=== PATIENT | male | born 1950 | race Caucasian/White ===

== ENCOUNTER → 2018-10-05 | Outpatient (CLI) | payer OTHER ==
--- NOTE | 2018-10-06 00:33 | CTL ---
EXAMINATION TYPE: CT Low Dose Lung DATE OF EXAM ORDERED: 10/05/2018 HISTORY: 68-year-old male presents with history of tobacco use/dependence. Lung cancer screening CT DLP: [address] CTDI: 3.3 mGy Automated exposure control for dose reduction was used. SCREENING VISIT: Baseline COMPARISON: None TECHNIQUE: Low dose computed tomography scan was performed through the chest at 1 mm thick sections a nd reconstructed images in the coronal and sagittal plane. Additional coronal MIP reconstructions wer e performed. CT DIAGNOSTIC QUALITY: Satisfactory FINDINGS: Heart normal size without pericardial effusion. Some scattered coronary vessel calcifications are pre sent. Aortic root is ectatic at 3.9 cm. Ascending aorta mildly aneurysmal at 4.1 cm. Conventional arch vessel branching anatomy. No thoracic lymphadenopathy by CT size criteria. Mild centrilobular emphysema. Biapical pleural parenchymal scarring. Mild diffuse bronchial wall thic kening. 5 mm anterior left upper lobe pulmonary nodule, axial image 96. Focal irregular patchy density peripheral left upper lobe, axial image 118 could represent an infecti ous/inflammatory focus and should be reassessed in 3 months. Unclear if there is vascular shadow versus a 1.7 cm right perihilar nodule, reference axial image 168 . Triangular 4 mm pulmonary nodule right mid lung along the major fissure suggesting a pulmonary lymph node. No consolidation or pleural effusion. Tiny hiatal hernia. Visualized upper abdomen shows mild stool burden. Bones: Mild degenerative disc disease lower thoracic spine. IMPRESSION: 1. LungRADS 3 - probably benign; vascular confluence versus 1.7 cm right perihilar nodule. Additional patchy groundglass left upper lobe may represent an infectious/inflammatory focus. 5 mm left upper l obe pulmonary nodule. 2. COPD with mild emphysema. 3. 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 RECOMMENDATION: 1. Three-month follow-up contrast enhanced CT chest to reassess. 2. Smoking cessation. FOLLOW-UP CT CHEST RECOMMENDATION: [address] LUNG RAD: 3, probably benign
== END | disposition home or self-care (01) ==
LOC: RADCTMAIN 15:28
DX: Z12.2 Encounter for screening for malignant neoplasm of respiratory organs (principal); J43.9 Emphysema, unspecified; I71.2 Thoracic aortic aneurysm, without rupture; Z87.891 Personal history of nicotine dependence

== ENCOUNTER → 2018-11-20 | Outpatient (CLI) | payer OTHER ==
--- NOTE | 2018-11-20 15:05 | CT ---
EXAMINATION TYPE: CT chest w con DATE OF EXAM: 11/20/2018 COMPARISON: 10/05/2018 HISTORY: 68-year-old male Solitary pulmonary nodule TECHNIQUE: Contiguous axial scanning of the chest after the administration of 100 mL of Isovue 300. Coronal/sagittal reconstructions performed. CT DLP: 443.7mGycm. Automatic exposure control utilized for a dose reduction. FINDINGS: Heart normal sinus with trace anterior pericardial fluid. LAD calcifications are present. The ascending aorta is measured ectatic at 3.8 cm rather than 4.1 cm on the recent prior. Mild athero sclerotic arch calcifications with conventional branching anatomy. The previously described possible right hilar nodule seems to correspond to a right-sided bronchial l ymph node versus pulmonary nodule measuring 2.0 x 1.7 cm, unchanged from 10/05/2018. There also seems to be a borderline sized 1.3 cm right infrahilar lymph node on axial image 32. Triangular fissural lymph node right mid lung axial image 31 is unchanged and benign. 3 mm left upper lobe pulmonary nodule axial image 25 is stable in retrospect. 5 mm anterior left uppe r lobe pulmonary nodule remains unchanged, axial image 22. 5 mm left lower lobe pulmonary nodule axial image 39 is unchanged in retrospect. Patchy ill-defined groundglass in the peripheral left upper lobe, axial image 26 and 27 is unchanged after one and a half months. Strandy atelectasis in the lower lungs. Biapical pleural-parenchymal scarring. No consolidation or pl eural effusion. Small hernia. Visualized upper abdomen shows no gross abnormality. Bones: Mild endplate spondylosis lower thoracic spine. IMPRESSION: 1. A 2.0 x 1.7 cm right bronchial lymph node versus perihilar pulmonary nodule is confirmed and remai ns unchanged for approximately 1.5 months. 2. Additional pulmonary nodules measuring up to 5 mm are also stable for 1.5 months. 3. Stable patch of groundglass left upper lobe, possible infectious/inflammatory focus. 4. Ongoing follow-up will be needed.
== END | disposition home or self-care (01) ==
LOC: RADCTMAIN 12:55
DX: R91.8 Other nonspecific abnormal finding of lung field (principal)
CPT/HCPCS: 82565; 84520; 71260; 36415; Q9967

== ENCOUNTER → 2020-10-23 | Outpatient (CLI) | payer OTHER ==
--- NOTE | 2020-10-25 21:37 | CT ---
EXAMINATION TYPE: CT chest w con DATE OF EXAM: 10/23/2020 COMPARISON: 11/20/2018 HISTORY: 70-year-old male R91.1, Solitary pulmonary nodule follow up. TECHNIQUE: Contiguous axial scanning of the chest after the administration of 100 mL of Isovue M300. Coronal/sagittal reconstructions performed. CT DLP: 357.6mGycm. Automatic exposure control utilized for a dose reduction. FINDINGS: Heart normal size without pericardial effusion. LAD coronary artery calcifications are present. Mild aneurysm ascending aorta 4.0 cm. Conventional arch vessel branching anatomy. Right hilar lymph node measuring 1.9 cm is unchanged. 1.3 cm left hilar lymph node is unchanged. Otherwise, no thoracic lymphadenopathy by CT size criteria. Biapical pleural parenchymal scarring, right greater than left. Mild to moderate centrilobular emphys santi. Mild dependent atelectasis. The couple previous 4 to 5 mm pulmonary nodules in the left upper lobe, axial images 17 and 19 are un changed. However, there is new cluster of 3 nodules in the periphery of the left midlung ranging in size from 7 mm to 10 mm, axial images 22 and 23. Short interval follow-up recommended. No consolidation or pleural effusion. Visualized upper abdomen shows no gross abnormality. Bones: Moderate degenerative disc disease L1-L2 with grade 1 retrolisthesis. IMPRESSION: 1. COPD with mild to moderate emphysema. 2. A couple 4 to 5 mm left upper lobe pulmonary nodules are unchanged and benign. However, there is a new cluster of 3 nodules in the periphery of the left mid lung measuring up to 1.0 cm. 3 month follo w-up CT to reassess. Early neoplasm not excluded at this time. 3. LAD coronary artery calcifications. Mild aneurysm ascending aorta 4.0 cm.
== END | disposition home or self-care (01) ==
LOC: RADCTMAIN 11:27
PROVIDERS: ATTEND Nurse Practitioner Acute Care
DX: I70.0 Atherosclerosis of aorta (principal); J43.9 Emphysema, unspecified
CPT/HCPCS: 82565; 84520; 71260; 36415; Q9967

== ENCOUNTER → 2020-11-24 | Outpatient (CLI) | payer MEDICARE ==
--- NOTE | 2020-11-24 08:12 | US ---
EXAMINATION TYPE: US prostate transrectal DATE OF EXAM: 11/24/2020 COMPARISON: NONE CLINICAL HISTORY: R97.20 Elevated PSA. Elevated PSA. Decreased urinary stream This examination was performed using the transrectal probe. EXAM MEASUREMENTS: Gland Size: 5.1 x 3.9 x 5.2cm Volume: 54.5ml Predicted PSA: 6.54 Actual PSA (if available): not available Heterogeneous gland. no distinct nodule within the peripheral zone IMPRESSION: Prostatic enlargement without suspicious nodule. Correlate with actual PSA and predicted PSA. Predicted PSA = volume x 0.12 ng/ml Calculated Volume = 0.5236 x L x W x H
== END | disposition home or self-care (01) ==
LOC: RADUSWWP 07:00
PROVIDERS: ATTEND Family Medicine
DX: R97.20 Elevated prostate specific antigen [PSA] (principal)
CPT/HCPCS: 76872

== ENCOUNTER → 2021-01-16 | Outpatient (CLI) | payer OTHER ==
--- NOTE | 2021-01-16 12:28 | CT ---
EXAMINATION TYPE: CT chest w con DATE OF EXAM: 01/16/2021 COMPARISON: Chest CT October 23, 2020 and older study November 20, 2018 HISTORY: prior abn CT CT DLP: 436.2 mGycm. Automated Exposure Control for Dose Reduction was Utilized. TECHNIQUE: CT scan of the thorax is performed following with IV Contrast, patient injected with 100 mL of Isovue 300. FINDINGS: LUNGS: Mild to moderate biapical pleural/parenchymal scarring extending posteriorly and inferiorly on the right is redemonstrated. Scattered small and micronodules are redemonstrated. Cluster of small n odules in the inferior lateral left upper lobe axial image 24 are slightly less prominent or smaller in size from most recent CT measuring up to 5 mm long axis current study. Dependent atelectatic topete e in both lower lobes. No new greater than 5 mm pulmonary nodules. No pleural effusion or pneumothora x seen MEDIASTINUM: There is stable slightly enlarged 1.6 x 1.3 cm right hilar lymph node axial image 33. No new greater than 1.0 cm thoracic lymph nodes. No cardiomegaly or pericardial effusion is seen. Cor onary artery calcification is present. Ascending aorta measures up to 4.0 cm in diameter at the aorti c root on coronal image 45 OTHER: Disc space narrowing with vacuum disc phenomenon in the upper lumbar spine is present. IMPRESSION: Diminished size to the cluster of small nodules in the left midlung periphery. No new or enlarging greater than 5 mm nodules identified on current study. Consider repeat CT in one year time to reassess.
== END | disposition home or self-care (01) ==
LOC: RADCTMAIN 10:50
DX: R91.8 Other nonspecific abnormal finding of lung field (principal)
CPT/HCPCS: 82565; 84520; 71260; 36415; Q9967

== ENCOUNTER → 2021-10-18 | Outpatient (CLI) | payer OTHER ==
--- NOTE | 2021-10-18 10:48 | CT ---
EXAMINATION TYPE: CT chest wo/w con CT DLP: 754.0 mGycm, Automated exposure control for dose reduction was used. DATE OF EXAM: 10/18/2021 10:30 AM COMPARISON: Multiple CT chest with most recent 01/16/2021. CLINICAL INDICATION:Male, 71 years old with history of R91.1 SOLITARY PULMONARY NODULE R91.8 ABNORMAL FIN; TECHNIQUE: Multiple axial images were obtained through the chest before and after the administration of 100 cc of Isovue 300. FINDINGS: LUNGS/ PLEURA: Mild to moderate biapical pleural/parenchymal scarring extending posteriorly and infer iorly on the right redemonstrated. Scattered small and micronodules are redemonstrated. No new or enl arging pulmonary nodules. Index nodules include left upper lobe 5 mm nodule (series 4, image 18) lef t upper lobe 4 mm pulmonary nodule (series 4, image 22), left lower lobe 7 mm pulmonary nodule (serie s 4, image 39), and right upper lobe 8 mm pulmonary nodule (series 4, image 30). Cluster of small nod ules in the inferior lateral left upper lobe are less prominent from prior examination. No pneumothor ax or pleural effusion. No focal consolidation. AIRWAY: Patent and unremarkable. HEART: Size within normal limits. No pericardial effusion. Coronary artery calcifications. MEDIASTINUM: Stable enlarged right hilar lymph node measuring up to 1.6 cm short axis (series 9, imag e 32). VASCULATURE: Stable ascending aorta measuring up to 4 cm in diameter. MUSCULOSKELETAL: No acute osseous abnormalities SOFT TISSUES/LYMPH NODES: No pathological adenopathy. Stable 9 mm subcutaneous right chest wall lesio n may be representing a sebaceous cyst. LOWER NECK: No significant findings. UPPER ABDOMEN: Small hiatal hernia. IMPRESSION: Diminished size to cluster of small nodules in the left midlung periphery prior examination. Remainin g scattered pulmonary nodules are stable in size. No new or enlarging pulmonary nodules.
== END | disposition home or self-care (01) ==
LOC: RADCTMAIN 08:56
DX: R91.1 Solitary pulmonary nodule (principal); R91.8 Other nonspecific abnormal finding of lung field
CPT/HCPCS: 82565; 84520; 71270; 36415; Q9967

== ENCOUNTER → 2022-10-15 | Outpatient (CLI) | payer OTHER ==
[2022-10-15 11:12] LABS: African American GFR (CKD) 88 (>60 ml/min/1.73 sqM); Blood Urea Nitrogen 15 mg/dL (9-20); Non-African American GFR(CKD) 76 (>60 ml/min/1.73 sqM)
--- NOTE | 2022-10-15 12:24 | CT ---
EXAMINATION TYPE: CT chest wo/w con CT DLP: 848.9 mGycm, Automated exposure control for dose reduction was used. DATE OF EXAM: 10/15/2022 11:40 AM COMPARISON: Multiple CT chest with most recent 10/18/2021 CLINICAL INDICATION:Male, 72 years old with history of R91.1 SOLITARY PULMONARY NODULE,R91.8; PHH, so litary pulmonary nodule TECHNIQUE: Multiple axial images were obtained through the chest before and after the uneventful admi nistration of 100 cc of Isovue-300 intravenously . Coronal and sagittal reformats reviewed. FINDINGS: LUNGS/ PLEURA: Mild to moderate biapical pleural/parenchymal scarring extending posteriorly and infer iorly on the right redemonstrated. Scattered small and micronodules are redemonstrated. Majority of t hese nodules are stable to marginally decreased in size. No new or enlarging pulmonary nodules. Inde x nodules include left upper lobe 4 mm nodule (series 4, image 20), previously 5 mm. Stable left uppe r lobe 4 mm pulmonary nodule (series 4, image 21). Stable left lobe 7 mm pulmonary nodule (series 4, image 35), and marginal decrease in size of right upper lobe 7 mm pulmonary nodule (series 4, image 3 1). Previously 8 mm. No pneumothorax or pleural effusion. New focal region of reticular opacities wit hin the left midlung measuring up to 1.7 cm (series 4, image 26). AIRWAY: Patent and unremarkable. HEART: Size within normal limits. No pericardial effusion. Coronary artery calcifications. MEDIASTINUM: Stable enlarged right hilar lymph node measuring up to 1.6 cm short axis (series 7, imag e 30). VASCULATURE: Stable ascending aorta measuring up to 4.1 cm in diameter. MUSCULOSKELETAL: No acute osseous abnormalities SOFT TISSUES/LYMPH NODES: No pathological adenopathy. Stable 9 mm subcutaneous right chest wall lesio n may be representing a sebaceous cyst. LOWER NECK: No significant findings. UPPER ABDOMEN: Small hiatal hernia. IMPRESSION: 1. Stable to marginally decreased in size of scattered pulmonary nodules measuring up to 8 mm. No ne w or enlarging pulmonary nodules. 2. New left midlung patchy reticular opacities likely representing infectious/inflammatory process. 3. Stable ascending thoracic aortic aneurysm measuring up to 4.1 cm. 4. Stable enlarged nonspecific right hilar lymph node measuring up to 1.6 cm.
== END | disposition home or self-care (01) ==
LOC: RADCTMAIN 10:31
DX: I71.21 Aneurysm of the ascending aorta, without rupture (principal); R91.8 Other nonspecific abnormal finding of lung field; R59.0 Localized enlarged lymph nodes
CPT/HCPCS: 82565; 84520; 71270; 36415; Q9967

== ENCOUNTER → 2023-10-15 | Outpatient (CLI) | payer OTHER ==
[2023-10-15 11:19] LABS: African American GFR (CKD) 74 (>60 ml/min/1.73 sqM); Blood Urea Nitrogen 13 mg/dL (9-20); Non-African American GFR(CKD) 64 (>60 ml/min/1.73 sqM)
--- NOTE | 2023-10-15 12:45 | CT ---
EXAMINATION TYPE: CT chest wo/w con CT DLP: 1206 mGycm, Automated exposure control for dose reduction was used. DATE OF EXAM: 10/15/2023 12:13 PM COMPARISON: Multiple CT chest with most recent 10/15/2022. CLINICAL INDICATION:Male, 73 years old with history of R91.1 LUNG NODULE; PHH, lung nodule TECHNIQUE: Multiple axial images were obtained through the chest before and after the uneventful admi nistration of 100 cc of Isovue-300 intravenously . Coronal and sagittal reformats reviewed. FINDINGS: LUNGS/ PLEURA: Mild to moderate biapical pleural/parenchymal scarring extending posteriorly and infer iorly on the right redemonstrated. Scattered small and micronodules are redemonstrated. Pulmonary nod ules are stable in size from prior exam. No new or enlarging pulmonary nodules. Index nodules includ e Stable left upper lobe 4.6 mm pulmonary nodule (series 10, image 37). Stable left lobe 7.5 mm pulmo nary nodule (series 10, image 40), and stable right upper lobe 6.6 mm pulmonary nodule (series 10, im age 37). No pneumothorax or pleural effusion. Decreased size of focal region of reticular opacities w ithin the left midlung measuring up to 1.3 cm, previously 1.7 cm (series 10, image 30). AIRWAY: Patent and unremarkable. HEART: Size within normal limits. No pericardial effusion. Moderate coronary artery calcifications. MEDIASTINUM: Stable enlarged right hilar lymph node measuring up to 1.7 cm short axis (series 9, imag e 35). VASCULATURE: Stable ascending aorta measuring up to 4.1 cm in diameter. MUSCULOSKELETAL: No acute osseous abnormalities SOFT TISSUES/LYMPH NODES: No pathological adenopathy. Previously seen subcutaneous right chest wall l esion has resolved. LOWER NECK: No significant findings. UPPER ABDOMEN: Small hiatal hernia. IMPRESSION: 1. Stable scattered pulmonary nodules measuring up to 7.5 mm. No new or enlarging pulmonary nodules. 2. Decrease left midline patchy reticular opacities from prior exam. 3. Stable ascending thoracic aortic aneurysm measuring up to 4.1 cm. 4. Stable enlarged nonspecific right hilar lymph node measuring up to 1.6 cm.
== END | disposition home or self-care (01) ==
LOC: RADCTMAIN 09:58
PROVIDERS: ATTEND Family Medicine
DX: R91.1 Solitary pulmonary nodule (principal); I71.21 Aneurysm of the ascending aorta, without rupture
CPT/HCPCS: 82565; 84520; 71270; 36415; Q9967

== ENCOUNTER → 2024-10-15 | Outpatient (CLI) | payer OTHER ==
[2024-10-15 13:07] LABS: African American GFR (CKD) 72 (>60 ml/min/1.73 sqM); Blood Urea Nitrogen 9 mg/dL (9-20); Non-African American GFR(CKD) 62 (>60 ml/min/1.73 sqM)
--- NOTE | 2024-10-15 13:51 | CT ---
EXAMINATION TYPE: CT chest wo/w con DATE OF EXAM: 10/15/2024 1:27 PM COMPARISON: 10/15/2023 CLINICAL INDICATION: Male, 74 years old with history of R91.1 SOLITARY PULMONARY NODULE I71.20 THORAC IC AO, F/u for solitary pulmonary nodule TECHNIQUE: Axial images were obtained at 5 mm thick sections. Reconstructed images are reviewed on [employer] computer in the coronal plane. Contrast used:100ml mL of Isovue 300 with IV Contrast, (none if empty) Oral contrast used: (none if empty) CT DLP: 869.3 mGycm, Automated exposure control for dose reduction was used. FINDINGS: Portion of the thyroid visualized is normal. There is an ill-defined 1.6 cm density peripheral left midlung. Series 4 image 25. Punctate nodular density posterior lateral right lung base. Series 4 image 29. This may have increase d in density and fullness from the comparison. Consider additional evaluation with PET/CT. There is a 0.4 cm density within the posterior lateral right lung base. Series 4 image 32. This may b e new. There are multiple additional nodules present, stable from comparison. There is a 0.4 cm nodule anterior left upper lung field. Series 4 image 20. There is a 0.6 cm density in the periphery of the right midlung. Series 4 image 23. There is a 0.7 cm density along the major fissure superior segment right lower lobe. Series 4 image 3 0 There is a 0.5 cm density within the anterior right lower lung field. Series 4 image 33. There is a 0.6 cm density posterior right lung base. Series 4 image 34. No enlarged mediastinal or hilar adenopathy is evident. The ascending aorta diameter at the level o f the main pulmonary artery is 3.9 cm. The main pulmonary artery diameter at the bifurcation is 2.3 cm. Mild coronary artery calcifications present. Limited CT sections are obtained through the upper abdomen. Abdomen is essentially unremarkable. IMPRESSION: 1. Increasing density within the peripheral left lung with multiple nodules. Recommend additional jeannette luation with PET/CT. 2. A 0.4 cm nodule may be new. 3. Remaining nodules are appears stable. [facility], Workstation: [facility], 10/15/2024 1:48 PM
== END | disposition home or self-care (01) ==
LOC: RADCTMAIN 12:18
PROVIDERS: ATTEND Family Medicine
DX: R91.8 Other nonspecific abnormal finding of lung field (principal); I71.20 Thoracic aortic aneurysm, without rupture, unspecified
CPT/HCPCS: 82565; 84520; 71270; 36415; Q9967